=== PATIENT | male | born 1995 | race Two or more races ===

== ENCOUNTER 2024-05-13 14:42 | Emergency (ER) | payer SELFPAY ==
[2024-05-13] MEDS: Sodium Chloride 0.9% 1,000 ML IV SCH (15:44)
[2024-05-13 15:52] LABS: BASOPHILS ABSOLUTE AUTO 0.1 K/mm3 (0.0-0.2); BASOPHILS PERCENT AUTO 1.2 % (0.0-1.0); EOSINOPHILS PERCENT AUTO 0.5 % (0.0-6.0); HEMATOCRIT 48.4 % (42.0-52.0); HEMOGLOBIN 16.5 gm/dl (14.0-18.0); LYMPHOCYTES ABSOLUTE AUTO 2.2 K/mm3 (1.0-4.8); LYMPHOCYTES PERCENT AUTO 52.3 % (24.0-44.0); MEAN CORPUSCULAR HEMOGLOBIN 30.2 pg (28.0-32.0); MEAN CORPUSCULAR HGB CONC 34.1 g/dl (32.0-36.0); MEAN CORPUSCULAR VOLUME 88.5 fl (83.0-99.0); MEAN PLATELET VOLUME 9.7 fl (9.4-12.4); MONOCYTES ABSOLUTE AUTO 0.4 K/mm3 (0.0-0.8); MONOCYTES PERCENT AUTO 9.4 % (0.0-8.0); NEUTROPHILS ABSOLUTE AUTO 1.5 K/mm3 (1.8-7.7); NEUTROPHILS PERCENT AUTO 36.6 % (41.0-71.0); PLATELET COUNT,PLT 123 K/mm3 (150-400); RED BLOOD CELL COUNT 5.47 M/mm3 (4.52-5.90); WHITE BLOOD CELL COUNT,WBC 4.17 K/mm3 (3.9-11.3)
[2024-05-13 16:23] LABS: A/G RATIO 0.9 (1-2); ALBUMIN 4.3 g/dl (3.4-5.0); ANION GAP 15.6 (5-15); BILIRUBIN TOTAL 0.5 mg/dL (0.2-1.0); BUN/CREATININE RATIO 6.7 (14-18); CALCIUM 8.8 mg/dL (8.5-10.1); CREATININE 0.9 mg/dL (0.7-1.3); EST CRCL DRUG DOSING (CG) 132.93 mL/min; ETHANOL BLOOD MEDICAL 0.35 gm% (0.00); MAGNESIUM 2.1 mg/dL (1.8-2.4); POTASSIUM,K 3.6 mEq/L (3.5-5.1); TSH 2.492 uIU/mL (0.358-3.74)
[2024-05-13] MEDS: Sodium Chloride 0.9% 10 ML Syringe FLUSH PRN (16:33)
[2024-05-13 16:46] LABS: AMPHETAMINES SCREEN, URINE NEGATIVE (CUTOFF=500); BARBITURATE SCREEN,URINE NEGATIVE (CUTOFF=200); BENZODIAZEPINES SCREEN,URINE NEGATIVE (CUTOFF=150); BUPRENORPHINE SCREEN,URINE NEGATIVE (CUTOFF=10); METHADONE SCREEN, URINE NEGATIVE (CUT0FF=200); METHAMPHETAMINES SCREEN, URINE NEGATIVE (CUTOFF=500); OXYCODONE SCREEN,URINE NEGATIVE (CUT0FF=100); THC SCREEN,URINE 20 NG/ML NEGATIVE (CUTOFF=50)
== END 2024-05-13 21:43 | disposition home or self-care (01) ==
LOC: JD.ED 14:42
DX: F10.10 Alcohol abuse, uncomplicated (principal); F17.210 Nicotine dependence, cigarettes, uncomplicated
CPT/HCPCS: 36415; 80053; 80143; 80179; 80306; 80307; 83735; 84443; 85025; 93005; 96360; 99284; J3490; J7030